=== PATIENT | male | born 1995 | race Hispanic/Latino ===

== ENCOUNTER → 2023-03-15 | Day surgery (SDC) | payer OTHER ==
--- NOTE | 2023-03-15 13:45 | RAD REPORT ---
EXAM DESCRIPTION: US - Guided FNA Non Breast - 03/15/2023 10:18 am CLINICAL HISTORY: D48.5 COMPARISON: Soft Tissue Neck W/Contr dated 03/10/2023 FINDINGS: Preoperative diagnosis: Right supraclavicular mass. Post operative diagnosis: Same. Conscious Sedation: None Fluoroscopy time: None Contrast used: None Estimated blood loss: Minimal Specimens:As below The right lower neck was prepped and draped in the usual sterile fashion, overlying the superficial l obulated heterogeneous hypoechoic abnormality, which corresponds to the superficial CT soft tissue as ymmetry. Of note, this lesion with (which was targeted for biopsy) is different from the somewhat linda per ovoid 2.1 cm lesion that was captured on the pre biopsy images. 1% lidocaine was infiltrated into the subcutaneous tissues for local anesthesia. On the real-time ultrasound guidance, using a anasarc a and of 22 gauge and 25 gauge needles, a total of 5 fine needle aspiration/biopsy specimens were obt ained of this lesion and sent to pathology for evaluation. There were no complications. IMPRESSION: Successful ultrasound-guided right supraclavicular mass fine-needle aspiration/biopsy.
== END ==
LOC: FNA 08:00
PROVIDERS: ATTEND Surgery
PROC: 0WB63ZX Excision of Neck, Percutaneous Approach, Diagnostic (ICD-10-PCS; principal; 2023-03-15)
DX: D48.5 Neoplasm of uncertain behavior of skin (principal)
CPT/HCPCS: 88162

== ENCOUNTER 2023-03-29 07:24 | Day surgery (SDC) | payer OTHER ==
[2023-03-29] MEDS ORDERED: Ringers Lactate 1,000 ML IV ONE (07:53)
[2023-03-29 08:03] LABS: Absolute Lymphocytes (CBC) 1.7 K/uL (0.7-4.9); Hematocrit 46.8 % (39.6-49.0); Lymphocytes % 23.5 % (15.3-44.8); MCV 84.2 fL (80-100); MPV 8.6 fL (7.6-11.3); Platelets 243 thou/uL (152-406); RBC Red Blood Cell Count 5.56 M/uL (4.33-5.43)
[2023-03-29] MEDS ORDERED: MIDAZOLAM HCL 2 MG/2 ML INJ ONE (08:13)
[2023-03-29] MEDS ORDERED: FENTANYL CITR 100 MCG/2 ML ONE (08:13)
[2023-03-29] MEDS ORDERED: LIDOCAINE 2% MPF 5 ML VIAL ONE (08:13)
[2023-03-29] MEDS ORDERED: KETOROLAC 30 MG/ML INJ ONE (08:13)
[2023-03-29] MEDS ORDERED: propofoL 200 MG/20 ML VIAL IV ONE (08:13)
[2023-03-29] MEDS ORDERED: ONDANSETRON 4 MG/2 ML VIAL ONE (08:14)
[2023-03-29] MEDS ORDERED: LIDOCAINE 1% 20 ML MDV ONE (08:44)
[2023-03-29] MEDS ORDERED: BUPIVACAINE 0.5% PF 10 ML VIAL ONE (08:44)
[2023-03-29] MEDS ORDERED: CEFAZOLIN SODIUM 1 GM/VIAL ONE (09:10)
[2023-03-29] MEDS ORDERED: CEFAZOLIN SODIUM 2 GM/VIAL ONE (09:10)
[2023-03-29] MEDS ORDERED: Mastisol Adhesive Liq ONE (10:31)
--- NOTE | 2023-03-29 10:32 | P.OP ---
Date of Service: 03/29/23 Preop diagnosis: Right neck mass Postop diagnosis: Same, venous malformation Procedure performed: Exploration of right neck mass Surgeon: Mc Mejía MD Project Development Director: None Estimated blood loss: Minimal Specimen: None Findings: As above Anesthesia: General Complications: None Drains: None Fluids and blood products: Nonapplicable Disposition: Recovery room Operative note: Patient brought to the OR placed in the supine position. General anesthesia begun. Patient prepped and draped in usual sterile fashion. Marcaine 0.5% plain locally. 3 cm incision made over the palpable right neck mass just above the medial clavicle. Subcutaneous tissue divided. Fascia identified and divided. A cluster of venous tissue was present. Minimal bleeding was noted. 3-0 and 4-0 silk was used to tie off the branches of the venous plexus. This was consistent with a venous malformation. The CT and the ultrasound were reviewed with the radiologist during the case. There is no other evidence of any disease that was discernible on the radiographic study as well as the operative findings. Therefore, Surgicel was placed in the wound. There was no further evidence of bleeding noted. 3-0 chromic was used to close the wound. Procedure in stable condition taken to recovery room in good general condition. CC:
[2023-03-29] MEDS ORDERED: HYDROCODONE/APAP 7.5/325 MG TAB PO PRN (10:34)
[2023-03-30 15:39] VITALS: BP 125/81; TEMP 97.6; O2SAT 10
== END 2023-03-29 12:06 | disposition home or self-care (01) ==
LOC: OR 07:24
PROVIDERS: ATTEND Surgery
PROC: 05LY0ZZ Occlusion of Upper Vein, Open Approach (ICD-10-PCS; principal; 2023-03-29 09:00)
DX: Q27.30 Arteriovenous malformation, site unspecified (principal); R22.1 Localized swelling, mass and lump, neck
CPT/HCPCS: 85025; 36415; 37615; J2704; J2001; J2250; J3010; J2405; J7120; J0690